=== PATIENT | female | born 1945 | race Caucasian/White ===

== ENCOUNTER 2019-05-15 07:00 | Day surgery (SDC) | payer OTHER ==
[~2019-05-15 07:00] MED LIST: COZAAR25 MG; GLIPIZIDE XL10 MG PO; INVOKANA100 MG; METFORMIN HCL1000 MG; PLAVIX75 MG; SYNTHROID88 MCG PO; TOPROL XL25 M1; TRULICITY1.5 MG/0.5; [UNRECOGNIZED DRUG - OTHER] PO
== END 2019-05-15 18:25 | disposition home or self-care (01) ==
LOC: CIR.AMB 07:00
DX: M75.122 Complete rotator cuff tear or rupture of left shoulder, not specified as traumatic (principal); M24.012 Loose body in left shoulder; M19.012 Primary osteoarthritis, left shoulder; M65.812 Other synovitis and tenosynovitis, left shoulder